=== PATIENT | female | born 1990 | race Caucasian/White ===

== ENCOUNTER 2019-01-15 18:35 | Outpatient (CLI) | payer OTHER ==
[~2019-01-15] VITALS: Ht 149.9 cm; Wt 68.6 kg
[2019-01-15 19:27] VITALS: Ht 149.9 cm; Wt 68.6 kg
[2019-01-15 19:28] VITALS: BP 117/74; PULSE 105; RESP 18
--- NOTE | 2019-01-16 00:43 | PN ---
Triage Information Date/Time January 16, 2019 Reason for visit: Uterine contraction, spotting and pelvic pressure Weeks of Gestation 36 weeks /Para 4 para 3 Diabetes: pre-gestational Hypertention: none Additional information 28-year-old with IUP at 36 weeks and care with [facility] presented due to spotting and pelvic pressure today. Patient records are available. Has been noncompliant noted to have elevated one hour glucose in the range of 249. Patient has not been checking her blood sugar. Denies any leaking of fluid or decreased movement. Patient has not make appointment with technician automated equipment. Has not been following diet. Objective Vital Signs Date Temp Pulse Resp B/P (MAP) Pulse Ox O2 O2 Flow FiO2 Time Delivery Rate 01/15/19 98.0 105 18 117/74 Room Air 19:28 (88) Heart Rate: 130's Heart Rate Comments Category 1 Contractions: None Exam General appearance: Alert and oriented x4 does not appear to be in any acute distress Abdomen: Soft, gravid, fundal height consider gestational age NST: Category 1 BPP: 8/8 U tox negative Exam closed/thick/high No bleeding noted in triage during monitoring Rh+ Estimated weight: 82 percentile TITO elevated consistent with polyhydramnios. TITO: 27.5 Placenta with no evidence of previa or abruption Results/Medications Result Diagram: 01/15/19 2313 Results 24 hrs Laboratory Tests Test 01/15/19 19:15 01/15/19 23:13 Urine Color YELLOW Urine Clarity CLEAR Urine pH 5.0 Urine Specific [place] 1.020 Urine Ketones TRACE A Urine Nitrite NEGATIVE Urine Bilirubin NEGATIVE Urine Urobilinogen 1+ H Urine Leukocyte Esterase NEGATIVE Urine Microscopic RBC 1 Urine Microscopic WBC 1 Urine Squamous Epithelial Cells FEW Urine Mucus FEW A Urine Hemoglobin 3+ H Urine Glucose 3+ H Urine Total Protein NEGATIVE Glucose Level 85 Hemoglobin A1c 6.3 H Imaging Results PROCEDURE: US OB biophysical profile. CLINICAL INDICATION: decreased movements, spotting TECHNIQUE: Multiple sonographic images of the pelvis were obtained. The images were reviewed on a PACS workstation. COMPARISON: No prior studies are available for comparison. FINDINGS: There is a single live intrauterine gestation. Cardiac activity is present with 144 beats per minute. There is a breech presentation. The placenta is anterior. There is no evidence of placental abruption. There is an increased amount of amniotic fluid with an TITO = 27.5 cm. Biophysical profile: movement 2/2 tone 2/2. breathing 2/2 TTIO 2/2 Total 06/05 RPTAT: AA . IMPRESSION: Normal biophysical profile. Polyhydramnios. . PROCEDURE: US OB. CLINICAL INDICATION: Size and dates , spotting TECHNIQUE: Multiple sonographic images of the pelvis and gravid uterus were obtained. The images were reviewed on a PACS workstation. COMPARISON: No prior studies are available for comparison. FINDINGS: Gestation: Single live intrauterine gestation. Cardiac activity: 152 beats per minute. Presentation: Breech Placenta: Location: Anterior. Appearance: No previa or abruption. Measurements: BPD = 8.7 cm, 35 weeks and 1 day HC = 31.6 cm, 35 weeks and 3 days AC = 33.3 cm, 37 weeks and 1 day FL = 6.9 cm, 35 weeks and 2 days Gestational Age: AUA estimated gestational age: 35 weeks 5 days LMP estimated gestational age: 35 weeks 0 days AUA estimated date of delivery: 02/14/19 The EFW = 2903 g, 82%ile based on LMP age. RPTAT: AA Disposition: Discharge Assessment/Plan IUP at 36 weeks Polyhydramnios Pre-gestational diabetes, this is based on one hour glucose test which is above 200 Hemoglobin A1c 6.5 Patient has not been compliant with checking blood sugar was seen technician automated equipment or following diet Polyhydramnios noted Likely related to uncontrolled diabetes Estimated weight 82 percentile I discussed with the patient importance of monitoring blood sugar, seeing technician automated equipment and following diet and management of the blood sugar as well as checking her blood sugar fasting and 2-hour postprandial. Goal of blood sugar fasting less than 90 and 2-hour postprandial less than 130 discussed with the patient I discussed the patient risk of uncontrolled diabetes including risk of macrosomia, stillbirth, section, complications including hypoglycemia, admission to the NICU, hypercalcemia Patient verbalized understanding. Referred to the clinic tomorrow to see the technician automated equipment and plan for testing twice a week as well as follow-up with perinatologist for TITO Discussed the patient regarding importance of testing twice a week Strict follow-up with her appointments discussed with the patient patient verbalized understanding. All questions were answered to patient's best satisfaction. She agreed to comply with instructions. She verbalized understanding above risks. She will return to triage as well scheduled for NST/BPP in 2 days EDMOND ESTES MD Jan 16, 2019 00:43
--- NOTE | 2019-01-16 04:41 | TRIAGE ---
OB Triage Datetime Report Generated by CPN: 01/16/2019 04:40 Datetime: 01/15/2019 23:56 Stage of : OB Triage Monitor Mode: External Quality: Mild Pattern: Normal: <= 5 Contractions in 10 Minutes Resting Tone Kelley: Relaxed Pain Assessment Pain Scale: 0 Pain Presence: None/Denies Pain Type: N/A Datetime: 01/15/2019 22:55 Stage of : OB Triage Labor Evaluation Frequency: 2-5 Monitor Mode: External Duration (sec)2399: 4-60 Quality: Mild Pattern: Normal: <= 5 Contractions in 10 Minutes Resting Tone Kelley: Relaxed Datetime: 01/15/2019 22:30 Monitor Mode: External Quality: Mild Pattern: Normal: <= 5 Contractions in 10 Minutes Resting Tone Kelley: Relaxed Monitor Mode: External US FHR Baseline Changes: No Baseline Change Variability: Moderate 6-25 bpm Accelerations: 15X15 Datetime: 01/15/2019 22:15 Stage of : OB Triage Monitor Mode: External Quality: Mild Pattern: Normal: <= 5 Contractions in 10 Minutes Resting Tone Kelley: Relaxed Datetime: 01/15/2019 21:40 Stage of : OB Triage Datetime: 01/15/2019 21:27 Vaginal Exam Dilatation (cms): 0.0 Effacement (%): 0 Station: -4 Exam By: EARLE Datetime: 01/15/2019 20:22 Stage of : OB Triage Datetime: 01/15/2019 20:08 Stage of : OB Triage Maternal Assessment Level of Consciousness: Fully Conscious Headache: Denies Blurred Vision: No Nausea/Vomiting: Denies RUQ Epigastric Pain: Denies Facial Edema: None Monitor Mode: External Quality: Mild Pattern: Normal: <= 5 Contractions in 10 Minutes Resting Tone Kelley: Relaxed Heart Rate FHR Baseline Rate: 140 Monitor Mode: External US FHR Baseline Changes: No Baseline Change Variability: Moderate 6-25 bpm Accelerations: 15X15 Decelerations: Variable Category: Category II Pain Assessment Pain Scale: 0 Pain Presence: None/Denies Pain Type: N/A Datetime: 01/15/2019 19:38 Time of Arrival: 01/15/2019 18:27 EGA: 35.0 Chief Complaint: C_O VAG. PRESSURE AND SPOTTING X 1 WEEK. Movement: Present Contractions: Denies/Absent Rupture of Membranes: Denies Vaginal Bleeding: None Vaginal Discharge: Denies Recent Sexual Intercouse: Denies Abdominal Trauma: Not Applicable Patient Complaints: None; Other Time Provider Notified: 01/16/2019 20:00 Provider Notified: Dr Allen Initial Plan: EFM, Datetime: 01/15/2019 19:37 Comment: PRESENTED TO TRIAGE C_O SPOTTING OFF AND ON X 1 WEEK. PRESSURE IN VAGINA PLACED ON EFM. CA LL LIGHT WITHIN REACH. FAMILY AT BEDSIDE. DENIES PAIN Datetime: 01/15/2019 19:36 Stage of : OB Triage Maternal Assessment Level of Consciousness: Fully Conscious DTR's/Clonus: DTRs 2+; No Clonus Headache: Denies Blurred Vision: No Respiratory Effort: Unlabored; Regular Rhythm; Equal Expansion Breath Sounds, Left: Clear and Equal Breath Sounds, Right: Clear and Equal Nausea/Vomiting: Denies RUQ Epigastric Pain: Denies Facial Edema: None Temperature Route: Axillary Fall Risk Assessment History of Falling: (0) No Secondary Diagnosis: (0) No Ambulatory Aid: (0) Bedrest/Nurse Assist IV Therapy: (0) No Gait: (0) Normal/Bedrest/Immobile Mental Status: (0) Oriented to Own Ability Fall Score: 0 Fall Risk Score Definition: No Risk: No action required Datetime: 01/15/2019 19:35 Labor Evaluation Frequency: 2-5 Monitor Mode: External Duration (sec)2399: 50-70 Quality: Mild Pattern: Normal: <= 5 Contractions in 10 Minutes Resting Tone Kelley: Relaxed Heart Rate FHR Baseline Rate: 155 Monitor Mode: External US Datetime: 01/15/2019 19:21 Membrane Status: Intact
== END 2019-01-16 00:20 | disposition home or self-care (01) ==
LOC: OBT 18:35 → L-D 18:37 → OBT 01-16 00:20
PROVIDERS: ATTEND Obstetrics & Gynecology
DX: O24.419 Gestational diabetes mellitus in pregnancy, unspecified control (principal); O62.9 Abnormality of forces of labor, unspecified; Z3A.36 36 weeks gestation of pregnancy
CPT/HCPCS: 36415; 76815; 76818; 80307; 81001; 82947; 83036; Z7500; G0463

== ENCOUNTER 2019-02-05 09:26 | Outpatient (CLI) | payer OTHER ==
[~2019-02-05] VITALS: Ht 149.9 cm; Wt 69.2 kg
[2019-02-05 10:16] VITALS: Ht 149.9 cm; Wt 69.2 kg
[2019-02-05 10:17] VITALS: BP 126/90; PULSE 100; RESP 18
[2019-02-05] MEDS ORDERED: PNV11TAB PO (10:19)
--- NOTE | 2019-02-05 16:28 | PN ---
Triage Information Date/Time Reason for visit: One elevated blood pressure during visit, present for further evaluation Weeks of Gestation 38 weeks /Para Diabetes: gestational Hypertention: none Objective Vital Signs Date Temp Pulse Resp B/P (MAP) Pulse Ox O2 O2 Flow FiO2 Time Delivery Rate 02/05/19 97.8 100 18 126/90 10:17 (102) Heart Rate: 140's Contractions: None Results/Medications Result Diagram: 02/05/19 1038 02/05/19 1038 Results 24 hrs Laboratory Tests Test 02/05/19 09:46 02/05/19 09:53 02/05/19 10:38 Bedside Glucose 91 Urine Color YELLOW Urine Clarity SLIGHTLY CLOUDY A Urine pH 6.0 Urine Specific [place] 1.014 Urine Ketones NEGATIVE Urine Nitrite NEGATIVE Urine Bilirubin NEGATIVE Urine Urobilinogen NEGATIVE Urine Leukocyte Esterase 1+ H Urine Microscopic RBC 1 Urine Microscopic WBC 2 Urine Squamous MODERATE Epithelial Cells Urine Bacteria FEW A Urine Hemoglobin 1+ H Urine Glucose NEGATIVE Urine Total Protein NEGATIVE White Blood Count 5.9 Red Blood Count 4.60 Hemoglobin 11.7 L Hematocrit 36.9 L Mean Corpuscular Volume 80.2 L Mean Corpuscular Hemoglobin 25.4 L Mean Corpuscular 31.7 L Hemoglobin Concent Red Cell Distribution Width 15.1 H Platelet Count 219 Mean Platelet Volume 12.4 H Immature Granulocytes % 1.200 H Neutrophils % 69.3 Lymphocytes % 23.6 Monocytes % 5.1 Eosinophils % 0.5 Basophils % 0.3 Nucleated Red Blood Cells % 0.0 Immature Granulocytes # 0.070 H Neutrophils # 4.1 Lymphocytes # 1.4 Monocytes # 0.3 Eosinophils # 0.0 Basophils # 0.0 Nucleated Red Blood Cells # 0.0 Prothrombin Time 11.8 L Prothrombin Time Ratio 0.9 INR International 0.86 Normalized Ratio Activated Partial Thromboplast 27.6 Time Fibrinogen 511.0 H Sodium Level 138 Potassium Level 4.0 Chloride Level 113 H Carbon Dioxide Level 16 L Anion Gap 9 Blood Urea Nitrogen 9 Creatinine 0.48 Est Glomerular Filtrat > 60 Rate mL/min Glucose Level 86 Uric Acid 4.3 Calcium Level 9.1 Total Bilirubin 0.4 Direct Bilirubin 0.00 Indirect Bilirubin 0.4 Aspartate Amino 24 Transf (AST/SGOT) Alanine 16 Aminotransferase (ALT/SGPT) Alkaline Phosphatase 394 H Total Protein 7.0 Albumin 3.4 Globulin 3.60 H Albumin/Globulin Ratio 0.94 Imaging Results FINDINGS: There is a single live intrauterine gestation. Cardiac activity is present with 150 beats per minute. There is a breech presentation. The placenta is anterior. There is no evidence of placental abruption. There is a slightly increased amount of amniotic fluid with an TITO = 21.1 cm. Biophysical profile: movement 2/2 tone 2/2. breathing 2/2 TITO 2/2 Total 06/05 RPTAT: AA . IMPRESSION: Normal biophysical profile. Borderline polyhydramnios. . .Abelino Mcmillan MD, MD Date Time Electronically viewed and signed by .Abelino Mcmillan MD, MD on 02/05/2019 11:38 Disposition: Discharge Assessment/Plan 28 years old 4 para 3003 with single intrauterine at 38 weeks with gestational diabetes, breech presentation had one elevated blood pressure during visits she sent to triage for further evaluation. She states good movement. She denies nausea, vomiting, shortness of breath, chest pain, headache, visual changes, vaginal bleeding or LOF. -FHR: No sign of metabolic acidosis- Category I -Contractions: None -Ultrasound performed as noted above -PIH labs performed which are within normal limits -She has been scheduled for delivery due to breech presentation at 39 weeks -Symptoms and sign of labor, preeclampsia, kick count discussed with patient, she voiced understanding. All of her questions answered. -Patient was discharged home in stable condition with the appropriate discharge instructions provided. I would like patient to have close follow-up with her primary physician or outpatient clinic in 1-2 days or return to triage for worsening symptoms or any other urgent concerns. ROXANE PETER Feb 05, 2019 16:28
--- NOTE | 2019-02-05 19:04 | TRIAGE ---
OB Triage Datetime Report Generated by CPN: 02/05/2019 19:04 Datetime: 02/05/2019 13:00 Labor Evaluation Frequency: 7-10 Monitor Mode: External Quality: Mild Pattern: Normal: <= 5 Contractions in 10 Minutes Resting Tone [place]: Relaxed Heart Rate FHR Baseline Rate: 145 Monitor Mode: External US Variability: Moderate 6-25 bpm Accelerations: 10X10 Decelerations: None Category: Category I Pain Assessment Pain Scale: 0 Pain Presence: None/Denies Pain Type: N/A Pain Goal: 3 Pain Relief Measures: Comfort Measures Datetime: 02/05/2019 12:43 Stage of : OB Triage Datetime: 02/05/2019 12:06 Labor Evaluation Frequency: 7-8 Monitor Mode: External Duration (sec)2399: 50-60 Quality: Mild Pattern: Normal: <= 5 Contractions in 10 Minutes Resting Tone [place]: Relaxed Heart Rate FHR Baseline Rate: 145 Monitor Mode: External US Variability: Moderate 6-25 bpm Accelerations: 10X10 Decelerations: None Category: Category I Pain Assessment Pain Scale: 0 Pain Presence: None/Denies Pain Type: N/A Pain Goal: 3 Pain Relief Measures: Comfort Measures Pain Assessment Comments: UNAWARE SHE WAS HAVING UC'S Datetime: 02/05/2019 10:54 Labor Evaluation Frequency: 7-8 Monitor Mode: External Duration (sec)2399: 50-60 Quality: Mild Pattern: Normal: <= 5 Contractions in 10 Minutes Resting Tone [place]: Relaxed Heart Rate FHR Baseline Rate: 145 Monitor Mode: External US Variability: Moderate 6-25 bpm Decelerations: None Pain Assessment Pain Scale: 0 Pain Presence: None/Denies Pain Type: N/A Pain Goal: 3 Pain Relief Measures: Comfort Measures Datetime: 02/05/2019 10:43 Comments: SITTING UP Datetime: 02/05/2019 10:30 Comments: MATERNAL PULSE VERIFIED Datetime: 02/05/2019 10:24 Stage of : OB Triage Datetime: 02/05/2019 09:50 Bedside Blood Glucose: 91 Datetime: 02/05/2019 09:48 Stage of : OB Triage Assessment Type: Triage Maternal Assessment Level of Consciousness: Fully Conscious DTR's/Clonus: DTRs 2+; No Clonus Headache: Denies Blurred Vision: No Respiratory Effort: Unlabored; Regular Rhythm; Equal Expansion Breath Sounds, Left: Clear and Equal Breath Sounds, Right: Clear and Equal Nausea/Vomiting: Denies RUQ Epigastric Pain: Denies Facial Edema: None Temperature Route: Axillary Fall Risk Assessment History of Falling: (0) No Secondary Diagnosis: (0) No Ambulatory Aid: (0) Bedrest/Nurse Assist IV Therapy: (0) No Gait: (0) Normal/Bedrest/Immobile Mental Status: (0) Oriented to Own Ability Fall Score: 0 Fall Risk Score Definition: No Risk: No action required Labor Evaluation Frequency: 2-3 Monitor Mode: External Duration (sec)2399: 50-60 Quality: Mild Pattern: Normal: <= 5 Contractions in 10 Minutes Heart Rate FHR Baseline Rate: 150 Monitor Mode: External US Variability: Moderate 6-25 bpm Accelerations: None Decelerations: None Pain Assessment Pain Scale: 0 Pain Presence: None/Denies Pain Type: N/A Pain Goal: 3 Pain Relief Measures: Comfort Measures Vaginal Exam Dilatation (cms): 0.0 Effacement (%): 0 Station: -3 Exam By: Barbara BRONSON Membrane Status: Intact Datetime: 02/05/2019 09:46 Time of Arrival: 02/05/2019 09:24 EGA: 38.0 Arrived By: Ambulatory Arrived From: Office Chief Complaint: REFERRED FROM DR OFFICE FOR EVALUATION OF BP, GDM BEING SEEN IN [facility]. STACI ES BLEEDING, LEAKING OR UC'S Movement: Present Contractions: Denies/Absent Contractions: 2-3 Rupture of Membranes: Denies Vaginal Bleeding: None Vaginal Discharge: Denies Recent Sexual Intercouse: Denies Abdominal Trauma: Not Applicable Patient Complaints: None Time Provider Notified: 02/05/2019 10:25 Provider Notified: vy Initial Plan: MONITOR, pih panel, bpp, efw Datetime: 01/15/2019 19:38 EGA: 35.0 Datetime: 01/15/2019 19:36 Fall Score: 0 Fall Risk Score Definition: No Risk: No action required
== END 2019-02-05 13:20 | disposition home or self-care (01) ==
LOC: L-D 09:26 → OBT 09:26
PROVIDERS: ATTEND Obstetrics & Gynecology
DX: O24.419 Gestational diabetes mellitus in pregnancy, unspecified control (principal); O32.1XX0 Maternal care for breech presentation, not applicable or unspecified; O13.3 Gestational [pregnancy-induced] hypertension without significant proteinuria, third trimester; Z3A.38 38 weeks gestation of pregnancy
CPT/HCPCS: 76815; 76818; 80053; 81001; 82962; 84560; 85025; 85384; 85610; 85730; Z7500; G0463

== ENCOUNTER 2019-02-12 05:24 | Inpatient (IN) | payer OTHER ==
[~2019-02-12] VITALS: Ht 149.9 cm; Wt 69.4 kg
[~2019-02-12 05:24] MED LIST: PNV11TAB PO
[2019-02-12 05:58] VITALS: Ht 149.9 cm; Wt 69.4 kg
[2019-02-12 05:59] VITALS: BP 126/90; PULSE 88; RESP 17
[2019-02-12] MEDS ORDERED: MISOPROSTOL 200 MCG TAB PR PRN ×2 (06:00→12:00)
[2019-02-12] MEDS ORDERED: CARBOPROST 250 MCG INJ IM PRN ×2 (06:00→12:00)
[2019-02-12] MEDS ORDERED: CEFAZOLIN 2 GM/50 ML (PMX) 50 ML IVPB SCH (06:00)
[2019-02-12] MEDS ORDERED: METHYLERGONOVINE 0.2 MG INJ IM PRN ×2 (06:00→12:00)
[2019-02-12] MEDS ORDERED: OXYTOCIN 30 UNITS/LR 500 ML IV SCH ×2 (06:00→11:57)
[2019-02-12] MEDS ORDERED: OXYTOCIN 30 UNITS/LR 500 ML IV PRN ×2 (06:00→12:00)
[2019-02-12] MEDS: LACTATED RINGER'S 1,000 ML IV SCH (06:29)
[2019-02-12] MEDS ORDERED: OXYTOCIN 30 UNITS/LR 500 ML BAG IV ONE (07:00)
--- NOTE | 2019-02-12 07:16 | PREAC ---
Date/Time of Note Date/Time of Note DATE: 02/12/19 TIME: 07:15 Anesthesia Eval and Record Evaluation Time Pre-Procedure Interview DATE: 02/12/19 TIME: 07:15 Age 28 Sex female NPO: 8 hrs Preoperative diagnosis iup at term Planned procedure repeat c section and btl Past Medical History Past Medical History: None Surgery & Anesthesia Issues No known issue Meds Anticoagulation: No Beta Yessy within 24 hr: No Reason Beta Yessy not given: Pt. not on B-Yessy Reported Medications [id number] ( 19) 1 Each Tablet, 1 TAB PO DAILY, TAB 02/05/19 Current Medications Lactated Ringer's 1,000 ml @ 125 mls/hr Q8H IV Last administered on 02/12/19at 06:29; Admin Dose 125 MLS/HR; Start 02/12/19 at 05:56 Cefazolin Sodium/ Dextrose 50 ml @ 100 mls/hr ONCE IVPB ; Start 02/12/19 at 06:00 Oxytocin/Lactated Ringer's 500 ml @ 125 mls/hr POST IV ; Start 02/12/19 at 06:00 Oxytocin/Lactated Ringer's 500 ml @ 0 mls/hr ONCE PRN IV .VAGINAL BLEEDING; Start 02/12/19 at 06:00 Methylergonovine Maleate (Methergine) 0.2 mg ONCE PRN IM .VAGINAL BLEEDING; Start 02/12/19 at 06:00 Carboprost Tromethamine (Hemabate) 250 mcg ONCE PRN IM .VAGINAL BLEEDING; Start 02/12/19 at 06:00 Misoprostol (Cytotec) 1,000 mcg ONCE PRN NH .VAGINAL BLEEDING; Start 02/12/19 at 06:00 Meds reviewed: Yes Allergies Coded Allergies: No Known Allergy (Unverified , 01/15/19) Allergies Reviewed: Yes Labs/Studies Labs Reviewed: Reviewed by anesthesiologist Result Diagram: 02/12/19 0620 Laboratory Tests 02/12/19 06:20 test: Positive Pre-procedure Exam Last vitals Vital Signs Date Temp Pulse Resp B/P (MAP) Pulse Ox O2 O2 Flow FiO2 Time Delivery Rate 02/12/19 97.8 88 17 126/90 Room Air 05:59 (102) Airway: Adequate mouth opening, Adequate thyromental dist Mallampati: Mallampati II Teeth: Normal Lung: Normal Heart: Normal ASA Physical Status ASA physical status: 2 Emergency: None Planned Anesthetic Neuraxial: Spinal Planned Pain Management Sub-arachniod narcotics, Parenteral pain med Pre-operative Attestations Prior to commencing anesthesia and surgery, the patient was re-evaluated, there was verification of: *The patient's identity *The results of appropriate recent lab work and preoperative vital signs *The above evaluation not changing prior to induction *Anesthetic plan, risk benefits, alternative and complications discussed with patient/family; questions answered; patient/family understands, accepts and wishes to proceed. DONN JOHNSON Feb 12, 2019 07:16
[2019-02-12] MEDS ORDERED: morphine SULFATE/PF (10 MG/10 ML) INJ ONE (07:27)
[2019-02-12] MEDS ORDERED: FENTAnyl 50 MCG/ML VIAL ONE (07:27)
[2019-02-12] MEDS ORDERED: DEXAMETHASONE 4 MG/ML 1 ML INJ ONE (08:10)
[2019-02-12] MEDS ORDERED: ONDANSETRON 4 MG INJ ONE (08:11)
[2019-02-12] MEDS ORDERED: ZOLPIDEM 5 MG TAB PO PRN (09:30)
[2019-02-12] MEDS ORDERED: NALOXONE (0.4 MG/ML) INJ IV PRN (09:30)
[2019-02-12] MEDS ORDERED: HYDROmorphONE 0.5 MG/0.5 ML SYG IV PRN ×2 (09:30)
[2019-02-12] MEDS ORDERED: DIPHENHYDRAMINE 50 MG INJ IV PRN (09:30)
[2019-02-12] MEDS ORDERED: ONDANSETRON 4 MG INJ IV PRN (09:30)
--- NOTE | 2019-02-12 10:46 | OPPN ---
Date/Time of Note Date/Time of Note DATE: 02/12/19 TIME: 10:26 Operative Report Planned Procedure Procedure date Feb 12, 2019 Procedure(s) Repeat low transverse cd delivery with bilateral tubal salpingectomy Performed by see signature line Medical Record Technician: ROXANE PETER 2nd Medical Record Technician none Anesthesiologist: DONN JOHNSON Pre-procedure diagnosis intrauterine at 39 weeks ga previous times threedesires elective repeat deliverywith tubal sterilization [id number] Anesthesia Type: [id number] spinal Post-Procedure Post-procedure diagnosis same Findings A viable make 9/9 Weight 3935 g foot[place] breech Estimated Blood Loss: 500 - 600 mls Specimen(s) rt snd left fallopian tube Grafts/Implant(s) none Complication(s) none BILL BOWLING MD Feb 12, 2019 10:46
[2019-02-12 12:00] VITALS: BP 131/89; PULSE 62; RESP 19
[2019-02-12] MEDS ORDERED: NACL 0.9% 3 ML SYG IV SCH (12:00)
[2019-02-12] MEDS ORDERED: OXYCODONE/ACETAMINOPHEN (5/325) TAB PO PRN (12:00)
[2019-02-12 12:30] VITALS: BP 129/88; PULSE 69; RESP 19
[2019-02-12] MEDS: KETOROLAC 30 MG INJ IV PRN ×2 (13:38→22:23)
[2019-02-12] MEDS: IBUPROFEN 800 MG TAB PO SCH ×2 (14:00→17:05)
[2019-02-12 15:18] VITALS: BP 129/84; PULSE 90; RESP 18
[2019-02-12] MEDS ORDERED: CEFAZOLIN 2 GM/50 ML (PMX) 50 ML IVPB ONE (16:00)
[2019-02-12 19:30] VITALS: BP 128/81; PULSE 107; RESP 18
[2019-02-13] VITALS: BP 115/76; PULSE 79; RESP 18
[2019-02-13] MEDS: CEFAZOLIN 2 GM/50 ML (PMX) 50 ML IVPB SCH ×2 (00:15→10:32)
[2019-02-13] MEDS: LACTATED RINGER'S 1,000 ML IV SCH (00:15)
[2019-02-13 04:00] VITALS: BP 98/63; PULSE 87; RESP 18
[2019-02-13] MEDS: IBUPROFEN 800 MG TAB PO SCH ×3 (06:00→21:36)
--- NOTE | 2019-02-13 07:31 | PREOPHP ---
DATE OF ADMISSION: 02/12/2019 HISTORY OF PRESENT ILLNESS: The patient is a 28-year-old 4, para 3, EDC 02/19/2019, intraute rine at 39 weeks gestational age with a history of previous C-sections x3, admitted today f or elective repeat section with bilateral tubal sterilization. She denies any contractions, vaginal bleeding, or discharge. Her care took place at [facility]. PAST MEDICAL HISTORY: None. MEDICATIONS: vitamins. PAST SURGICAL HISTORY: x 3 previous section. History of an abdominal feeding tube. OBSTETRIC HISTORY: x3 previous section. GYNECOLOGIC HISTORY: 14, regular 3 to 4 days. She denies any sexually transmitted infections. Sexu ally active with 1 partner. SOCIAL HISTORY: She denies any smoking, drugs or alcohol. FAMILY HISTORY: None. REVIEW OF SYSTEMS: All within normal except history of present illness. PHYSICAL EXAMINATION: HEENT: Within normal. LUNGS: CTA bilateral. CARDIOVASCULAR: S1, S2, regular rhythm. ABDOMEN: Gravid, nontender. Negative CVA bilateral. EXTREMITIES: Negative. No calf tenderness. PELVIC: Vaginal exam deferred. heart tracing category 1. Ultrasound performed on 01/23/2019 diagnosed with polyhydramnios, TITO of 26.9. Placenta is anterior with accelerated growth of ab domen. ASSESSMENT: A 28-year-old 4, para 3, intrauterine at 39 weeks gestational age, GDM A1. History of 3 previous sections, desires elective repeat delivery with bilatera l tubal sterilization. PLAN: Consent for a repeat with bilateral tubal ligation. Risks, benefits, alternatives e xplained. All questions were answered. Dictated By: BILL MATHIS/NTS Conf#: [id number] DID#: [id number] CC: BILL BOWLING MD;*EndCC*
[2019-02-13 07:55] VITALS: BP 112/59; PULSE 98; RESP 19
--- NOTE | 2019-02-13 10:29 | PAC ---
Date/Time of Note Date/Time of Note DATE: 02/13/19 TIME: 10:29 Post-Anesthesia Notes Post-Anesthesia Note Last documented vital signs Vital Signs Date Temp Pulse Resp B/P (MAP) Pulse Ox O2 O2 Flow FiO2 Time Delivery Rate 02/13/19 98.3 87 18 98/63 (75) 96 Room Air 1029 Activity: WNL Respiratory function: WNL Cardiovascular function: WNL Mental status: Baseline Pain reasonably controlled: Yes Hydration appropriate: Yes Nausea/Vomiting absent: Yes DONN JOHNSON Feb 13, 2019 10:29
--- NOTE | 2019-02-13 10:30 | OPPN ---
Date/Time of Note Date/Time of Note DATE: 02/13/19 TIME: 10:29 Anesthesia Follow up Anesthesia Follow up Last documented vital signs Vital Signs Date Temp Pulse Resp B/P (MAP) Pulse Ox O2 O2 Flow FiO2 Time Delivery Rate 02/13/19 98.3 87 18 98/63 (75) 96 Room Air 1030 Respiratory function: WNL Cardiovascular function: WNL Comments SATISFACTORY PAIN MANAGEMENT WITH INTRATHECAL DURAMORPH. NO COMPLICATIONS DONN JOHNSON Feb 13, 2019 10:30
--- NOTE | 2019-02-13 11:35 | QN ---
Documentation Comment progress note pod 1 patient seen and evaluated no complaints vs stable afebrile ab dressing clean/dry extremity no edema no joseph tenderness a/ sp cd pod 1 stable afebrile p/ iron supplement encourage ambulation BILL BOWLING MD Feb 13, 2019 11:35
[2019-02-13 15:50] VITALS: BP 117/80; PULSE 87; RESP 18
--- NOTE | 2019-02-13 16:55 | OPR ---
DATE OF OPERATION: 02/12/2019 PRIMARY DIAGNOSES: 1. Intrauterine at 39' weeks gestational age. 2. Previous section x3. 3. Desires elective repeat delivery with bilateral tubal sterilization. POSTOPERATIVE DIAGNOSES: 1. Intrauterine at 39' weeks gestational age. 2. Previous section x3. 3. Desires elective repeat delivery with bilateral tubal sterilization. PROCEDURES: Repeat low transverse delivery with bilateral tubal salpingectomy. SURGEON: Carlos Allen MD GREEN BELT: Rylee Reyna MD ANESTHESIA: Spinal. COMPLICATIONS: None. ESTIMATED BLOOD LOSS: 500 mL. SPECIMEN: Left and right fallopian tube. FINDINGS: A viable male, 9 and 9 respectively at 1 and 5 minutes, weight 3935 grams, in footli ng breech presentation, normal uterus, tubes and ovaries. DESCRIPTION OF PROCEDURE: After explaining the risks, benefits and alternatives, the patient and con sent signed in chart, the patient was taken to the operating room where spinal anesthesia was found t o be adequate. She was then prepared and draped in a dorsal lithotomy position and prepared and drap ed in normal sterile fashion. A Pfannenstiel skin incision was then made with a scalpel and carried to the underlying fascia. The fascia was incised in midline. Incision was extended laterally with M franny scissors. The superior aspect of the fascial incision was grasped with curved clamps, elevated a nd the underlying rectus muscles were dissected off bluntly. Attention was then turned to the inferi or aspect of the incision which in similar fashion was grasped, tented up with curved clamps and the rectus muscles were dissected off bluntly. The rectus muscles were in midline, peritoneum identified, tented up and sharply with Metzenbaum scissors. The peritoneal incision was then extende d superiorly and inferiorly. Good visualization of bladder. The bladder blade was then inserted and the lower uterine segment was incised in transverse fashion with the scalpel. The uterine incision was extended laterally. At this point, the bladder blade was removed and the 's feet were deli shonna to the level of the scapula. The right arm was flipped across the chest and delivered. Simila rly, the left arm was flipped across the chest and delivered. The head was then delivered atraumatic ally. The nose and mouth were suctioned and cord clamped and cut. The was handed off to ivette scott shingles roofer. The placenta was then removed. The uterus extracted of all clots and debris. Th e uterine incision was repaired with 1-0 chromic in a running locked fashion. A second layer of same suture was used for imbrication obtaining excellent hemostasis. At this point, a Sharron was used t o grasp the left fallopian tube and the entire fallopian tube was excised with 2-0 plain gut x2. Sim ilarly, the other fallopian tube was excised. The uterus was returned to the abdomen. Again, good h emostasis was assured. The peritoneum and rectus abdominis muscles were reapproximated with 2-0 Vicr yl in interrupted fashion. The fascia was then reapproximated with 0 Vicryl in a running fashion. T he subcutaneous tissue was reapproximated with 2-0 plain gut in a running fashion. The skin was clos ed with diana. The patient tolerated procedure well. All counts were correct. The patient was ta arvind to recovery room in stable condition. Dictated By: CARLOS MATHIS/ELLA Conf#: [id number] DID#: [id number]
[2019-02-13 19:46] VITALS: BP 117/78; PULSE 96; RESP 18
[2019-02-13] MEDS: OXYCODONE/ACETAMINOPHEN (5/325) TAB PO PRN (19:46)
[2019-02-13] MEDS: FERROUS SULFATE (EC) 325 MG TAB PO SCH (21:36)
[2019-02-13] MEDS: SENNA TAB PO SCH (22:17)
[2019-02-13] MEDS: MAGNESIUM HYDROXIDE 30ML CUP PO SCH (22:17)
[2019-02-14 03:32] VITALS: BP 126/77; PULSE 87; RESP 18
[2019-02-14] MEDS: OXYCODONE/ACETAMINOPHEN (5/325) TAB PO PRN ×2 (03:32→17:48)
[2019-02-14] MEDS: IBUPROFEN 800 MG TAB PO SCH ×3 (05:35→21:51)
[2019-02-14 08:30] VITALS: BP 114/78; PULSE 92; RESP 17
[2019-02-14] MEDS: SENNA TAB PO SCH ×2 (09:19→21:00)
[2019-02-14] MEDS: MAGNESIUM HYDROXIDE 30ML CUP PO SCH ×2 (09:19→21:00)
[2019-02-14] MEDS: FERROUS SULFATE (EC) 325 MG TAB PO SCH ×2 (09:19→20:44)
--- NOTE | 2019-02-14 12:06 | QN ---
Documentation Comment progress note pod 2 patient seen and evaluated no complaints vs stable afebrile ab c/d/i no distention extremity no edema no joseph tenderness a/ sp cd pod 2 stable afebrile p/ discharge home tomorrow BILL BOWLING MD Feb 14, 2019 12:06
--- NOTE | 2019-02-14 12:08 | PD.PPDC ---
EMT INTERMEDIATE Discharge Instruction Condition Hbsyp5Bi Patient Condition: Wmhsp5h Fair Diet Yattv5Zz Diet: Fcwnu0o Resume Regular Diet Activity/Restrictions Qtvby5Al Activity: Kiuoo7r Normal Activity May Shower Dzbri7Si Restrictions: Zmbgq6e No Exercising No Lifting No Driving No Sexual Activity Nothing in the Vagina No [place] No Tampons, douche Follow-up Follow-up with Physician: 3, Day/Days Provider Information: to remove diana Return to clinic for [id number] MEDICAL EQUIPMENT REPAIRER Instructions: Sldhe8m Fever greater than 101 Chills Worsening abdominal pain Excessive Vaginal Bleeding More than 2 pads per hour Unable to tolerate diet [id number] OB Instructions: Wcgqx4b Breast Tenderness Depression Blurried Vision Headache Geydz1Ah Surgical Instructions: Blzxq0n Incisional Drainage Incisional Redness BILL BOWLING MD Feb 14, 2019 12:08
[2019-02-14 16:06] VITALS: BP 125/94; PULSE 101
[2019-02-14 19:55] VITALS: BP 121/78; PULSE 92; RESP 18
[2019-02-15 04:35] VITALS: BP 119/77; PULSE 88; RESP 18
[2019-02-15] MEDS: IBUPROFEN 800 MG TAB PO SCH (06:01)
[2019-02-15] MEDS: MAGNESIUM HYDROXIDE 30ML CUP PO SCH (09:00)
[2019-02-15] MEDS: SENNA TAB PO SCH (09:00)
[2019-02-15] MEDS: FERROUS SULFATE (EC) 325 MG TAB PO SCH (09:06)
--- NOTE | 2019-02-15 10:51 | PN ---
Date/Time of Note Date/Time of Note DATE: 02/15/19 TIME: 10:47 OB Subjective Subjective Subjective Denies any complaint, Has not been breast feeding,. Use only formula. Passed flatus. Denies any complaint. Urinated. Pain well-controlled with p.o. pain medication. Reports decreased vaginal bleeding. Denies any fever or chills. Denies any lightheadedness, shortness of breath or chest pain. OB Objective Objective Objective CBC & BMP 02/13/19 08:30 OB Assessment/Plan Other Assessment: Post repeat section with BTL Postoperative day #3 Doing well Mild anemia, postop, asymptomatic Bottlefeeding. No evidence of breast engorgement. Has been wearing tight bra Stable for discharge home today Advised to take iron and pill with this assessment and follow-up in 2 weeks and 6 weeks postop with primary OB office or sooner as needed EDMOND ESTES MD Feb 15, 2019 10:51
[2019-02-15] MEDS ORDERED: DIPHTH/TET/ACEL PERTUSS (ADULT) 0.5 ML VIAL IM* ONE (11:00)
--- NOTE | 2019-02-16 12:44 | DELSUM ---
Delivery Summary A-C Datetime Report Generated by CPN: 02/16/2019 12:43 DELIVERY PERSONNEL Wire Insulator: Holman, Cleopatra MATERNAL INFORMATION Delivery Anesthesia: Spinal Medications in Delivery: see Anesthesia Flowsheet Delivery QBL (ml): 500 Placenta Cultured: No Maternal Complications: None RN Comments: Repeat with BTL LABOR SUMMARY EDC: 02/19/2019 00:00 No. Babies in Womb: 1 Attempted: No Labor Anesthesia: None LABOR INFORMATION Reason for Induction: Not Applicable Oxytocin: N/A Group B Beta Strep: Negative Antibiotics # of Doses: Ancef 2 gm x1 Antibiotics Time of Last Dose: 02/12/2019 08:10 Steroids Given: None Reason Steroids Not Administered: Not Applicable MEMBRANES Membranes Rupture Method: Artificial Rupture of Membranes: 02/12/2019 08:33 Length of Rupture (hr): 0.00 Amniotic Fluid Color: Clear Amniotic Fluid Amount: Moderate Amniotic Fluid Odor: None STAGES OF LABOR Stage 3 hr: 0 Stage 3 min: 1 VAGINAL DELIVERY Episiotomy: None Laceration Extension: N/A Laceration Type: None CSECTION DELIVERY Primary Indication: Repeat Elective CSection Urgency: Elective CSection Incidence: Repeat Labor: No Labor Elective: Elective CSection Incision: Lower Uterine Transverse BABY A INFORMATION Delivery Date/Time: 02/12/2019 08:33 Method of Delivery: Born in Route : No : N/A Forceps: N/A Vacuum Extraction: N/A Shoulder Dystocia : N/A SHOULDER DYSTOCIA BABY A Delivery Date/Time: 02/12/2019 08:33 PRESENTATION/POSITION BABY A Presentation: Breech Cephalic Presentation: N/A Breech Presentation: Jimenez PLACENTA INFORMATION BABY A Placenta Delivery Time : 02/12/2019 08:34 Placenta Method of Delivery: Manual Removal Placenta Status: Delivered SCORES BABY A Heart Rate 1 min: >100 bpm Resp Effort 1 min: Good Cry Reflex Irritability 1 min: Cough/Sneeze/Pulls Away Muscle Tone 1 min: Active Motion Color 1 min: Body Holt, Extremit Blue Resuscitation Effort 1 min: Tactile Stimulation SCORE 1 MIN: 9 Heart Rate 5 min: >100 bpm Resp Effort 5 min: Good Cry Reflex Irritability 5 min: Cough/Sneeze/Pulls Away Muscle Tone 5 min: Active Motion Color 5 min: Body Holt, Extremit Blue SCORE 5 MIN: 9 INFANT INFORMATION BABY A Gestational Age at Delivery: 39.0 Gestational Status: Full Term- 39- 40.6 Weeks Outcome : Liveborn Infant Condition : Stable Sex: Male IDENTIFICATION/MEDS BABY A ID Band Number: [id number] ID Band Location: Right Leg; Left Arm Sensor Applied: Yes Sensor Number: [id number] Sensor Location : Cord Clamp Vitamin K Given : Not Given Erythromycin Given: Not Given WEIGHT/LENGTH BABY A Infant Birthweight (gm): 3935 Weight (lb): 8 Weight (oz): 11 Infant Length (in): 21.00 Length (cm): 53.34 CORD INFORMATION BABY A No. Cord Vessels: 3 Nuchal Cord : N/A Cord Blood Taken: Yes Infant Suction: Nose; Pharynx ASSESSMENT BABY A Complications: None Physical Findings at Delivery: Within Normal Limits Infant Respirations: Appears Normal Forest Manager/ALS Called : Yes Infant Care By: RT Transferred To: Remains with Mother
--- NOTE | 2019-02-17 08:18 | DS ---
DATE OF ADMISSION: 02/12/2019 DATE OF DISCHARGE: 02/15/2019 PRIMARY DIAGNOSES: 1. Intrauterine at 39 weeks gestational age. 2. Previous section x3. 3. Desires elective repeat delivery with bilateral tubal sterilization. PROCEDURE: Repeat low transverse delivery with bilateral tubal salpingectomy. CONDITION ON DISCHARGE: Stable. ACTIVITY: None per vagina, no lifting x6 weeks. DIET: Regular. MEDICATIONS ON DISCHARGE: 1. Motrin. 2. Iron. 3. Colace. DISCHARGE SUMMARY: Ms. Juan Lara underwent a repeat delivery with bilateral tubal sterilization on 02/12/2019. She had a viable male, 9 and 9 respectively at 1 and 5 minutes, w eight 3935 grams. She had an uneventful 1 and 2. She was discharged on postop day 3. Her incision is clean, dry, intact. She is ambulating, tolerating diet, positive flatulence, positive bowel movem ent. She will follow up in the clinic in 3 days to remove her diana. Dictated By: BILL MATHIS/ELLA Conf#: [id number] DID#: [id number]
== END 2019-02-15 12:40 | disposition home or self-care (01) | DRG 785 ==
LOC: L-D 05:24 → EDUNIT# 07:30 → L-D 08:18 → PP1 11:51
PROVIDERS: ADMIT Obstetrics & Gynecology; ATTEND Obstetrics & Gynecology
PROC: 0UB70ZZ Excision of Bilateral Fallopian Tubes, Open Approach (ICD-10-PCS; 2019-02-12)
PROC: 10D00Z1 Extraction of Products of Conception, Low, Open Approach (ICD-10-PCS; principal; 2019-02-12 07:30)
DX: O24.420 Gestational diabetes mellitus in childbirth, diet controlled (principal); O34.211 Maternal care for low transverse scar from previous cesarean delivery; Z3A.39 39 weeks gestation of pregnancy; Z37.0 Single live birth; Z30.2 Encounter for sterilization; O90.81 Anemia of the puerperium
CPT/HCPCS: 85025; 85610; 85730; 86592; 86850; 86900; 86901; 88302; 90715; 99464; J0690; J1100; J1170; J1200; J1885; J2210; J2274; J2405; J2590; J3010; J7120